=== PATIENT | female | born 1935 | race Caucasian/White ===

== ENCOUNTER 2025-07-19 16:06 | Inpatient (IN) | payer MEDICARE ==
[2025-07-19 18:37] VITALS: BMI 18.3
[2025-07-19 18:38] VITALS: BP 159/78; TEMP 98.3
[2025-07-19] MEDS ORDERED: Senokot 8.6 MG TAB PO PRN (19:10)
[2025-07-19] MEDS: Aspirin 81 mg Enteric Coated Tablet PO SCH (20:16)
[2025-07-19] MEDS: Gabapentin 100 MG CAP PO SCH (20:17)
[2025-07-19 23:11] LABS: Troponin I 0.040 ng/mL (< 0.028)
[2025-07-19] MEDS: Acetaminophen 325 MG TAB PO SCH (23:44)
== END 2025-07-20 00:53 | disposition short-term general hospital (02) | DRG 560 ==
LOC: MADMS 17:48
PROVIDERS: ADMIT Family Medicine; ATTEND Family Medicine
PROC: F07Z9ZZ Gait Training/Functional Ambulation Treatment (ICD-10-PCS; principal; 2025-07-19)
DX: S72.002D Fracture of unspecified part of neck of left femur, subsequent encounter for closed fracture with routine healing (principal); D62 Acute posthemorrhagic anemia; I24.9 Acute ischemic heart disease, unspecified; N39.0 Urinary tract infection, site not specified; R33.8 Other retention of urine; I48.91 Unspecified atrial fibrillation; R79.89 Other specified abnormal findings of blood chemistry; Z88.7 Allergy status to serum and vaccine; Z79.899 Other long term (current) drug therapy; Z79.82 Long term (current) use of aspirin; Z79.891 Long term (current) use of opiate analgesic; I25.2 Old myocardial infarction; Z95.5 Presence of coronary angioplasty implant and graft; Z98.890 Other specified postprocedural states; Z87.891 Personal history of nicotine dependence; Z91.81 History of falling
CPT/HCPCS: 93005; 93010

== ENCOUNTER 2025-07-19 23:33 | Emergency (ER) | payer MEDICARE ==
[2025-07-19] MEDS ORDERED: Lidocaine Viscous Sol 2% 15 ml UD Cup ONE (23:58)
[2025-07-19] MEDS ORDERED: Nitroglycerin 0.4 MG TAB 1 EACH ONE (23:58)
[2025-07-19] MEDS ORDERED: Mag-Al 1200 mg/1200 mg/30 ML UDCUP ONE (23:58)
[2025-07-19] MEDS ORDERED: Aspirin Chewable 81 MG TAB ONE (23:58)
[2025-07-20] LABS: #Basophils 0.2 thou/uL (0.0-0.2); #Eosinophils 0.2 thou/uL (0.0-0.7); #Lymphocytes 0.6 thou/uL (1.20-3.40); #Monocytes 0.7 thou/uL (0.11-0.59); #Neutrophils 5.7 thou/uL (1.40-6.50); %Basophils 2.6 % (0.0-1.0); %Eosinophils 2.7 % (0.0-10.0); %Lymphocytes 7.8 % (21.0-51.0); %Monocytes 9.1 % (0.0-10.0); %Neutrophils 77.8 % (42.0-75.0); Hematocrit 28.3 % (36.0-47.0); Hemoglobin 9.0 g/dL (12.0-16.0); Mean Corpuscular Hemoglobin 30.4 pg (27.0-31.0); Mean Corpuscular Volume 94.9 fl (78.0-98.0); Platelet Count 251 10x3/uL (130-400); Red Blood Cell (RBC) Count 2.98 mill/uL (4.20-5.40); White Blood Cell (WBC) Count 7.3 10x3/uL (4.8-10.8)
[2025-07-20 00:21] LABS: ALT (SGPT) Less than 7 U/L (Less than 34); AST (SGOT) 22 U/L (11-34); Albumin 2.7 g/dL (3.1-4.5); Alkaline Phosphatase 76 U/L (40-110); Anion Gap 16 mmol/L (10-20); BUN (Urea Nitrogen) 47 mg/dL (9.8-20.1); Bilirubin, Total 0.8 mg/dL (0.3-1.2); Calc. Creatinine Clearance 0 mL/min (70-130); Calcium 9.5 mg/dL (7.8-10.44); Carbon Dioxide 17 mmol/L (23-31); Chloride 109 mmol/L (98-107); Globulin 3.0 g/dL (2.4-3.5); Glucose 112 mg/dL (83-110); Lipase 23 U/L (8-78); Potassium 4.7 mmol/L (3.5-5.1); Sodium 137 mmol/L (136-145)
[2025-07-20] MEDS ORDERED: Amiodarone In Dextrose 200 ML ONE (00:23)
[2025-07-20] MEDS ORDERED: Digoxin 0.5 MG/2 ML AMP ONE (00:48)
[2025-07-20 00:55] LABS: INR-International Normal Ratio 1.0; Prothrombin Time 13.6 sec (12.0-14.7)
[2025-07-20 00:56] LABS: PTT 35.8 sec (22.9-36.1)
[2025-07-20 01:00] LABS: Magnesium 2.1 mg/dL (1.6-2.6)
[2025-07-20] MEDS ORDERED: dilTIAZem 25 MG/5 ML VIAL ONE (01:11)
[2025-07-20] MEDS ORDERED: Heparin 10,000 UNITS/ 10 ML VIAL ONE (01:21)
[2025-07-20 02:10] LABS: Troponin I 0.019 ng/mL (< 0.028)
== END 2025-07-20 02:48 | disposition short-term general hospital (02) ==
LOC: MADERS 23:33
DX: I48.20 Chronic atrial fibrillation, unspecified (principal); R07.9 Chest pain, unspecified; I25.2 Old myocardial infarction; Z79.82 Long term (current) use of aspirin; Z79.899 Other long term (current) drug therapy; Z87.891 Personal history of nicotine dependence
CPT/HCPCS: 71045; 83690; 83735; 83880; 84443; 84484; 85610; 85730; 93005; 94760; 96365; 96366; 96368; 96374; 96375; 96376; J0282; J0283; J1160; J1644; J7120

== ENCOUNTER 2025-07-24 20:31 | Inpatient (IN) | payer MEDICARE ==
[2025-07-24] MEDS: Acetaminophen 325 MG TAB PO PRN (21:45)
[2025-07-25 05:17] LABS: #Basophils 0.1 thou/uL (0.0-0.2); #Eosinophils 0.3 thou/uL (0.0-0.7); #Lymphocytes 0.8 thou/uL (1.20-3.40); #Monocytes 0.6 thou/uL (0.11-0.59); #Neutrophils 6.0 thou/uL (1.40-6.50); %Basophils 1.5 % (0.0-1.0); %Eosinophils 3.2 % (0.0-10.0); %Lymphocytes 10.3 % (21.0-51.0); %Monocytes 7.4 % (0.0-10.0); %Neutrophils 77.6 % (42.0-75.0); Hematocrit 25.0 % (36.0-47.0); Hemoglobin 8.3 g/dL (12.0-16.0); Mean Corpuscular Hemoglobin 31.7 pg (27.0-31.0); Mean Corpuscular Volume 95.1 fl (78.0-98.0); Platelet Count 348 10x3/uL (130-400); Red Blood Cell (RBC) Count 2.63 mill/uL (4.20-5.40); White Blood Cell (WBC) Count 7.8 10x3/uL (4.8-10.8)
[2025-07-25] MEDS ORDERED: Lactulose 20 GM (30 mL) UDCUP PO PRN (05:37)
[2025-07-25 05:38] LABS: ALT (SGPT) 12 U/L (Less than 34); AST (SGOT) 29 U/L (11-34); Albumin 2.6 g/dL (3.1-4.5); Alkaline Phosphatase 96 U/L (40-110); Anion Gap 14 mmol/L (10-20); BUN (Urea Nitrogen) 31 mg/dL (9.8-20.1); Bilirubin, Total 0.8 mg/dL (0.3-1.2); Calc. Creatinine Clearance 26 mL/min (70-130); Calcium 8.7 mg/dL (7.8-10.44); Carbon Dioxide 22 mmol/L (23-31); Chloride 107 mmol/L (98-107); Globulin 2.7 g/dL (2.4-3.5); Glucose 94 mg/dL (83-110); Potassium 4.6 mmol/L (3.5-5.1); Sodium 138 mmol/L (136-145)
[2025-07-25] MEDS: Fleet Saline Enema 133 ML BOT PR SCH (05:50)
[2025-07-25] MEDS: Aspirin 81 mg Enteric Coated Tablet PO SCH (08:18)
[2025-07-25] MEDS: Pantoprazole 40 MG DR.TAB PO SCH (08:18)
[2025-07-25] MEDS: Gabapentin 100 MG CAP PO SCH (08:19)
[2025-07-25] MEDS ORDERED: Enoxaparin 30 MG (0.3 mL) SYRINGE SC SCH (09:00)
[2025-08-05 15:03] LABS: Glucose, Urine (Dipstick) 250 mg/dL (Negative); Leukocyte Moderate (Negative); Protein, Urine (Dipstick) 30 mg/dL (Neg-Trace); Specific Gravity, Urine 1.020 (1.005-1.030)
[2025-08-05 15:04] LABS: Bacteria/HPF Rare-Few HPF (None Seen); WBC/HPF Greater Than 50 HPF (0-3)
[2025-08-05 15:05] LABS: Yeast-Budding 4+ HPF (None Seen); Yeast-Hyphae 4+ HPF (None Seen)
[2025-08-06] MEDS: Cephalexin 500 MG CAP PO SCH (20:09)
[2025-08-07] MEDS: Fluconazole 100 MG TAB PO SCH (12:29)
[2025-08-08] MEDS: Fluconazole 100 MG TAB PO SCH (08:33)
[2025-08-10 05:21] LABS: Hematocrit 25.8 % (36.0-47.0); Hemoglobin 8.4 g/dL (12.0-16.0); Mean Corpuscular Hemoglobin 32.0 pg (27.0-31.0); Mean Corpuscular Volume 98.0 fl (78.0-98.0); Platelet Count 208 10x3/uL (130-400); Red Blood Cell (RBC) Count 2.63 mill/uL (4.20-5.40); White Blood Cell (WBC) Count 5.0 10x3/uL (4.8-10.8)
[2025-08-15 11:56] LABS: Iron 35 ug/dL (50-170); Iron Binding Capacity, Total 185 mcg/dL (265-497)
[2025-08-15 15:43] VITALS: BMI 19.3
[2025-08-15 23:15] VITALS: BMI 18.7
[2025-08-18 11:30] VITALS: BP 110/74; TEMP 98.6
== END 2025-08-18 11:55 | disposition home health service (06) | DRG 945 ==
LOC: MADMS 20:31
PROVIDERS: ADMIT Family Medicine; ATTEND Family Medicine
PROC: F07Z9ZZ Gait Training/Functional Ambulation Treatment (ICD-10-PCS; principal; 2025-07-24)
DX: R53.1 Weakness (principal); N39.0 Urinary tract infection, site not specified; I12.9 Hypertensive chronic kidney disease with stage 1 through stage 4 chronic kidney disease, or unspecified chronic kidney disease; I25.10 Atherosclerotic heart disease of native coronary artery without angina pectoris; N18.30 Chronic kidney disease, stage 3 unspecified; D63.1 Anemia in chronic kidney disease; I48.0 Paroxysmal atrial fibrillation; F17.200 Nicotine dependence, unspecified, uncomplicated; K59.00 Constipation, unspecified; Z88.8 Allergy status to other drugs, medicaments and biological substances; Z95.5 Presence of coronary angioplasty implant and graft; Z98.890 Other specified postprocedural states; Z87.81 Personal history of (healed) traumatic fracture
CPT/HCPCS: 36415; 74018; 80053; 81001; 82728; 83540; 83550; 85025; 85027; 87077; 87086

== ENCOUNTER 2025-09-29 11:05 | Emergency (ER) | payer MEDICARE ==
[2025-09-29 12:18] LABS: Glucose, Urine (Dipstick) Negative (Negative); Leukocyte Small (Negative); Protein, Urine (Dipstick) 100 mg/dL (Neg-Trace); Specific Gravity, Urine Greater/Equal 1.030 (1.005-1.030)
[2025-09-29 12:27] LABS: Bacteria/HPF 2+ HPF (None Seen); CAUTI Indications for Culture Dysuria,urgency,freq
[2025-09-29 12:30] LABS: Urine Culture Reflex Yes Yes
[2025-09-29] MEDS ORDERED: cefTRIAXone (ROCEPHIN) 1 GM VIAL ONE (13:05)
== END 2025-09-29 13:32 | disposition home or self-care (01) ==
LOC: MADERS 11:05
DX: Z46.6 Encounter for fitting and adjustment of urinary device (principal); N39.0 Urinary tract infection, site not specified; I10 Essential (primary) hypertension; I25.2 Old myocardial infarction; Z95.5 Presence of coronary angioplasty implant and graft; Z87.891 Personal history of nicotine dependence
CPT/HCPCS: 81001; 87077; 87086; 87186; J0696; 96372; 99283